=== PATIENT | male | born 1985 | race Caucasian/White ===

== ENCOUNTER 2025-04-27 19:49 | Inpatient (IN) | payer BC ==
[~2025-04-27] VITALS: Ht 180.3 cm; Wt 68.0 kg
[2025-04-27 21:44] LABS: COVID AG,FIA SOURCE NASAL SWAB
[2025-04-27] MEDS: LevETIRAcetam 1,000 MG in DEXTROSE 5%-WATER 100 ML IV ONE (21:47)
[2025-04-27] MEDS: SODIUM CHLORIDE 0.9% 1,000 ML IV ONE (21:47)
[2025-04-27 21:52] LABS: PLATELET COUNT (AUTO) 327 K/uL (150-450); RED BLOOD CELL COUNT(AUTO) 4.71 MIL/uL (4.50-5.90); RED CELL DISTRIBUTION WIDTH 13.5 % (11.5-14.5); WHITE BLOOD COUNT (AUTO) 12.3 K/uL (4.5-11.0)
[2025-04-27 21:59] LABS: CALCIUM, TOTAL 9.1 mg/dL (8.8-10.5); CREATININE 1.47 mg/dL (0.60-1.30); GLOMERULAR FILTR. RATE CALC 53 mL/min (>60); GLUCOSE,RANDOM 163 mg/dL (70-110); SODIUM SERUM 140 mmol/L (136-145); UREA NITROGEN, BLOOD 16 mg/dL (7-18)
[2025-04-27 22:08] LABS: TROPONIN I-HIGH SENSITIVITY 15 ng/L (<76)
[2025-04-27 22:11] LABS: SARS-COV2 (COVID) ANTIGEN,FIA Negative (Negative)
[2025-04-27 22:28] LABS: ASPARTATE AMINOTRANSFERASE 62 U/L (15-37); TOTAL PROTEIN, SERUM 7.9 g/dL (6.4-8.2)
[2025-04-27 22:31] LABS: CREATINE KINASE, TOTAL ONLY 2440 U/L (39-308)
[2025-04-27] MEDS: LORazepam 2 MG/ML VIAL IVP ONE (22:38)
[2025-04-27 22:55] LABS: ALCOHOL, BLOOD (SERUM) < 3 mg/dL (0-10)
[2025-04-27] MEDS ORDERED: ACETAMINOPHEN 325 MG TABLET PO PRN (23:30)
[2025-04-27] MEDS ORDERED: ONDANSETRON HCL 4 MG/2 ML VIAL IVP PRN (23:30)
[2025-04-28] MEDS: HEPARIN SODIUM,PORCINE 5,000 UNITS/ML VIAL SQ SCH
[2025-04-28 01:44] LABS: ALCOHOL, URINE DRUG SCREEN NEGATIVE (NEGATIVE); AMPHET/METH SCREEN,URINE NEGATIVE (NEGATIVE); APPEARANCE,URINE CLEAR (CLEAR); BARBITURATE SCREEN, URINE NEGATIVE (NEGATIVE); CANNABINOID SCREEN,URINE POSITIVE (NEGATIVE); COCAINE SCREEN,URINE NEGATIVE (NEGATIVE); GLUCOSE, URINE (UA) NEGATIVE (NEGATIVE); LEUKOCYTE ESTERASE ,URINE NEGATIVE (NEGATIVE); METHADONE SCREEN, URINE NEGATIVE (NEGATIVE); NITRATE,URINE NEGATIVE (NEGATIVE); OCCULT BLOOD,URINE NEGATIVE (NEGATIVE); PH,URINE DRUG SCREEN 5.5 (5.0-8.0); SPECIFIC GRAVITIY, URINE 1.016 (1.003-1.030)
[2025-04-28] MEDS: RINGERS SOLUTION,LACTATED 1,000 ML IV SCH (02:41)
[2025-04-28 03:01] VITALS: BP 112/90; PULSE 76; RESP 18; TEMP 98.9; O2SAT 97
[2025-04-28] MEDS: DOCUSATE SODIUM 100 MG CAPSULE PO SCH (09:00)
[2025-04-28 09:02] VITALS: BP 101/65; PULSE 75; RESP 18; TEMP 97.3; O2SAT 99
[2025-04-28 12:30] LABS: PLATELET COUNT (AUTO) 276 K/uL (150-450); RED BLOOD CELL COUNT(AUTO) 4.36 MIL/uL (4.50-5.90); RED CELL DISTRIBUTION WIDTH 13.3 % (11.5-14.5); WHITE BLOOD COUNT (AUTO) 7.9 K/uL (4.5-11.0)
[2025-04-28 14:04] LABS: CALCIUM, TOTAL 8.3 mg/dL (8.8-10.5); CREATININE 1.09 mg/dL (0.60-1.30); GLOMERULAR FILTR. RATE CALC > 60 mL/min (>60); GLUCOSE,RANDOM 81 mg/dL (70-110); SODIUM SERUM 143 mmol/L (136-145); UREA NITROGEN, BLOOD 10 mg/dL (7-18)
[2025-04-28] MEDS: MAGNESIUM SULFATE 2 GM/WATER 50 ML IV ONE (17:16)
[2025-04-28 20:00] VITALS: RESP 18
[2025-04-28 20:25] VITALS: BP 104/53; PULSE 76; RESP 18; TEMP 98.1; O2SAT 94
[2025-04-29 04:00] VITALS: BP 116/61; PULSE 54; RESP 18; TEMP 98.1; O2SAT 96
[2025-04-29 08:10] VITALS: BP 121/76; PULSE 78; RESP 18; TEMP 97.9; O2SAT 98
[2025-04-29 16:42] VITALS: BP 118/78; PULSE 78; RESP 18; TEMP 98.2; O2SAT 98
[2025-04-29 19:30] VITALS: BP 129/79; PULSE 74; RESP 20; TEMP 98.2; O2SAT 98
[2025-04-30] MEDS: MELATONIN 3 MG TABLET PO SCH (00:17)
[2025-04-30 05:05] VITALS: BP 112/60; PULSE 57; RESP 18; TEMP 98.1; O2SAT 99
[2025-04-30 08:11] VITALS: BP 124/75; PULSE 62; RESP 19; TEMP 98.2; O2SAT 98
[2025-04-30 12:37] VITALS: BP 118/70; PULSE 65; RESP 19; TEMP 98; O2SAT 98
[2025-04-30] MEDS ORDERED: MELATONIN 3 MG TABLET PO SCH (21:00)
== END 2025-04-30 17:42 | disposition home or self-care (01) | DRG 557 ==
LOC: EMS 19:49 → EDH 23:18 → 6S 04-28 02:12
PROVIDERS: ADMIT Internal Medicine; ATTEND Internal Medicine
DX: M62.82 Rhabdomyolysis (principal); N17.0 Acute kidney failure with tubular necrosis; R65.11 Systemic inflammatory response syndrome (SIRS) of non-infectious origin with acute organ dysfunction; M84.474A Pathological fracture, right foot, initial encounter for fracture; F25.9 Schizoaffective disorder, unspecified; R74.8 Abnormal levels of other serum enzymes; J44.9 Chronic obstructive pulmonary disease, unspecified; Z20.822 Contact with and (suspected) exposure to COVID-19; Z87.891 Personal history of nicotine dependence; Z63.9 Problem related to primary support group, unspecified; Z55.8 Other problems related to education and literacy; Z65.3 Problems related to other legal circumstances
CPT/HCPCS: 29515; 70450; 71045; 80048; 80076; 80307; 81003; 82550; 83735; 83880; 84484; 85025; 85610; 85730; 93005; 96365; 99285; G0378; G0480; J0712; J1644; J2060; J3230; J3475; J7030; J7060; J7120; 36415-L1; 36415-TC